=== PATIENT | female | born 1985 | race Two or more races ===

== ENCOUNTER 2023-09-18 13:07 | Emergency (ER) | payer MEDICAID ==
[~2023-09-18] VITALS: Ht 160 cm; Wt 85.7 kg
[2023-09-18 13:25] VITALS: TEMP 98; O2SAT 100
[2023-09-18 15:34] LABS: CLARITY URINE CLEAR (CLEAR); COLOR URINE YELLOW (YELLOW); GLUCOSE URINE NEGATIVE (NEGATIVE); KETONES URINE 1+ (NEGATIVE); LEUKOCYTE ESTERASE URINE NEGATIVE (NEGATIVE); NITRITE URINE NEGATIVE (NEGATIVE); OCCULT BLOOD URINE NEGATIVE (NEGATIVE); PROTEIN URINE NEGATIVE (NEGATIVE); SPECIFIC GRAVITY URINE 1.012 (1.005-1.030); UROBILINOGEN URINE 0.2 E.U./dL (0.2-1.0)
[2023-09-18 16:11] LABS: UCG QC LOT# 713349; UCG SCREEN NEGATIVE
[2023-09-18 19:30] VITALS: BP 116/82; PULSE 78; RESP 18
== END 2023-09-18 19:32 | disposition home or self-care (01) ==
LOC: ER 13:07
DX: N83.201 Unspecified ovarian cyst, right side (principal); R10.30 Lower abdominal pain, unspecified; Z98.890 Other specified postprocedural states
CPT/HCPCS: 74176; 81003; 81025; 99284